=== PATIENT | male | born 1990 | race Caucasian/White ===

== ENCOUNTER 2017-12-29 13:49 | Emergency (ER) | payer OTHER ==
[~2017-12-29] VITALS: Ht 167.6 cm; Wt 102.0 kg
[2017-12-29 14:00] VITALS: BP 147/87; PULSE 71; RESP 16; TEMP 98; O2SAT 98
[2017-12-29] MEDS ORDERED: MAGICADU2 SWISH-SWAL (14:26)
[2017-12-29] MEDS ORDERED: AUGM875T3 PO (14:26)
[2017-12-29] MEDS ORDERED: IBUPROFEN 800 MG TAB PO ONE (14:30)
[2017-12-29] MEDS ORDERED: PRAZ1 PO (14:30)
[2017-12-29] MEDS ORDERED: AMOXICILLIN/CLAVULANATE K 875 MG TAB PO ONE (14:30)
--- NOTE | 2017-12-29 14:30 | PD ---
HPI Chief Complaint: Cold / Flu Symptoms Time Seen by Provider: 14:15 Travel History International Travel<30 days: No Contact w/Intl Traveler<30days: No Traveled to known affect area: No History of Present Illness HPI 27-year-old male with PMH of migraines presents to the ED for evaluation of 4 day history of headaches, sinus congestion, rhinorrhea, nonproductive cough and less than 24-hour history of right upper toothache. Headache is generalized, similar to previous headaches. He endorses aura of flashing lights. Denies photophobia. Denies dizziness. Denies vision changes. Patient denies fevers, chills, nausea, vomiting. Denies history of seasonal allergies. Denies sick contacts. Did not receive the flu vaccine. He endorses a lost filling in the affected tooth. [facility] Social History Tobacco Use: No Allergies-Medications (Allergen,Severity, Reaction): Coded Allergies: No Known Allergies (Unverified , 12/29/17) Reported Meds & Prescriptions Reported Meds & Active Scripts Active Reported Minipress (Prazosin HCl) 1 Mg Cap 1 Mg PO DAILY Review of Systems Except as stated in HPI: all other systems reviewed are Neg Physical Exam Narrative GENERAL: Well-nourished, well-developed, ill-appearing white male in no acute distress. SKIN: Warm and dry. HEAD: Normocephalic. Atraumatic. EYES: No scleral icterus. No injection or drainage. PERRLA. EOMI. ENT: Pearly campbell tympanic membranes bilaterally. Nasal mucosa is moist. Oropharynx without erythema, edema or exudate. DENTAL: No loose or chipped teeth. No malocclusion. There is a missing filling in tooth #3. No evidence of drainable abscess. NECK: Supple, trachea midline. No JVD or lymphadenopathy. CARDIOVASCULAR: Regular rate and rhythm without murmurs, gallops, or rubs. RESPIRATORY: Breath sounds clear and equal bilaterally. No accessory muscle use. GASTROINTESTINAL: Abdomen soft, non-tender, nondistended. + Bowel sounds MUSCULOSKELETAL: No cyanosis, or edema. BACK: Nontender without obvious deformity. No CVA tenderness. Data Data Last Documented VS Vital Signs Date Time Temp Pulse Resp B/P (MAP) Pulse Ox O2 Delivery O2 Flow Rate FiO2 12/29/17 14:00 98.0 71 16 147/87 (107) 98 Orders Orders Ibuprofen (Motrin) (12/29/17 14:30) Amoxicil-Clavulanate (Augmentin) (12/29/17 14:30) Ed Discharge Order (12/29/17 14:33) [facility] Medical Decision Making Medical Screen Exam Complete: Yes Emergency Medical Condition: Yes Differential Diagnosis Migraine versus viral syndrome versus dental abscess versus other Narrative Course 27-year-old male with PMH of migraines presents to the ED for evaluation of 4 day history of headaches, sinus congestion, rhinorrhea, nonproductive cough and less than 24-hour history of right upper toothache. Headache is generalized, similar to previous headaches. Did not receive the flu vaccine. He endorses a lost filling in the affected tooth. He is followed by the [facility]. patient is afebrile on presentation. ENT exam is unremarkable. He does have a missing filling in tooth #3 with no signs of drainable abscess. Chest CTAB. Abdomen soft and nontender. Prescribed Augmentin to cover for the dental infection as well as provided magic mouthwash for pain relief. Patient's administered 800 mg ibuprofen and first dose of Augmentin in the ED. He is instructed to take every antibiotic pill as prescribed, follow with the dentist, return for worsening symptoms. He asked for and was provided a work note. He stable and discharged home. Diagnosis Primary Impression: Pain, dental Additional Impression: Viral syndrome Referrals: Dentist Patient Instructions: Acute Headache (ED), Dental Caries (ED), General Instructions, Viral Syndrome (ED) Departure Forms: Tests/Procedures, Work Release Enter return to work date: Dec 30, 2017 Additional Instructions: Rest, hydrate. Take every dose of antibiotics until they are all gone. Magic mouthwash alternating with warm salt water gargles a few times a day to help reduce pain. Ibuprofen as directed on label, as needed for headaches, body aches, toothache. Follow-up with the dentist. Return to the ED for worsening symptoms or any urgent or emergent medical condition. Med/Other Pt SpecificInfo: Prescription(s) given Disposition: 01 DISCHARGE HOME Condition: Stable Anna Valenzuela Dec 29, 2017 14:30
== END 2017-12-29 14:57 | disposition home or self-care (01) ==
LOC: PHEFT 13:49
DX: K08.89 Other specified disorders of teeth and supporting structures (principal); B34.9 Viral infection, unspecified; Z79.899 Other long term (current) drug therapy
CPT/HCPCS: 99283